=== PATIENT | female | born 1985 ===

== ENCOUNTER 2017-04-27 21:18 | Emergency (ER) | payer OTHER ==
[2017-04-27 22:25] VITALS: BP 138/69; PULSE 97; RESP 16; TEMP 101.8; O2SAT 100
[2017-04-27] MEDS ORDERED: Naproxen 500 MG TAB PO ONE ×2 (22:53→23:29)
--- NOTE | 2017-04-27 23:20 | ED PDOC ---
HPI: General Adult Time Seen by Provider: 04/27/17 22:34 Chief Complaint (Nursing): ENT Problem History Per: Patient Additional Complaint(s): Pt. states for the past 2 days she's had a sore throat with fever. Has been taking Motrin without relief. Last dose was taken at 1500 today. Denies cough, congestion, SOB, throat swelling, rash, abdominal pain, sick contacts, recent travel. Past Medical History Reviewed: Historical Data, Nursing Documentation, Vital Signs Vital Signs: Last Vital Signs Temp 101.8 F H 04/27/17 23:51 Pulse 97 H 04/27/17 22:17 Resp 16 04/27/17 22:17 BP 138/69 04/27/17 22:17 Pulse Ox 100 04/27/17 23:23 - Family History Family History: States: No Known Family Hx - Home Medications Home Medications: Ambulatory Orders Medication Instructions Recorded Amoxicillin/Clavulanate [Augmentin 1 tab PO BID #20 tab 04/27/17 500 MG-125 MG] Naproxen [Naprosyn] 500 mg PO BID PRN #30 tab 04/27/17 - Allergies Allergies/Adverse Reactions: Allergies Allergy/AdvReac Type Severity Reaction Status Date / Time No Known Allergies Allergy Verified 04/27/17 22:25 Review of Systems ROS Statement: Except As Marked, All Systems Reviewed And Found Negative Constitutional: Positive for: Fever ENT: Positive for: Throat Pain Physical Exam - Physical Exam Appears: Positive for: Well, Non-toxic, No Acute Distress Skin: Positive for: Normal Color, Warm. Negative for: Rash Eye Exam: Positive for: EOMI, Normal appearance, PERRL ENT: Positive for: TM Is/Are (non-erythematous, non-bulging b/l), Pharyngeal Erythema, Tonsillar Exudate, Tonsillar Swelling (minimal b/l tonsillar swelling but non-kissing), Other (no trismus; able to swallow saliva) Cardiovascular/Chest: Positive for: Regular Rate, Rhythm Respiratory: Positive for: Normal Breath Sounds. Negative for: Decreased Breath Sounds, Accessory Muscle Use, Rales, Rhonchi, Wheezing, Respiratory Distress Gastrointestinal/Abdominal: Positive for: Normal Exam, Bowel Sounds, Soft. Negative for: Tenderness, Organomegaly Back: Positive for: Normal Inspection. Negative for: L CVA Tenderness, R CVA Tenderness - ECG O2 Sat by Pulse Oximetry: 100 - Progress ED Course And Treament: Throat culture sent. Decadron IM, naproxen 500mg PO given. Disposition - Clinical Impression Clinical Impression: Tonsillitis - Patient ED Disposition Is Patient to be Admitted: No - Disposition Referrals: Eugene Douglas MD [Staff Provider] - [facility] [Outside] Disposition: Routine/Home Disposition Time: 23:22 Condition: STABLE Prescriptions: Amoxicillin/Clavulanate [Augmentin 500 MG-125 MG] 1 tab PO BID #20 tab Naproxen [Naprosyn] 500 mg PO BID PRN #30 tab PRN Reason: Pain Instructions: Tonsillitis (ED) Print Language: BELARUSIAN
== END 2017-04-27 23:53 | disposition home or self-care (01) ==
LOC: H.ER 21:18
DX: J03.90 Acute tonsillitis, unspecified (principal)